=== PATIENT | female | born 1970 | race Caucasian/White ===

== ENCOUNTER → 2016-07-28 | Outpatient (CLI) | payer MEDICARE ==
[2016-07-28 10:26] LABS: CHLORIDE,CL 105 mmol/L (98-110); SODIUM,NA 140 mmol/L (136-146)
== END ==
LOC: MW.CHFP 09:36
PROVIDERS: ATTEND Family Medicine
DX: I10 Essential (primary) hypertension (principal); R73.03 Prediabetes; R73.09 Other abnormal glucose; F41.9 Anxiety disorder, unspecified; G43.409 Hemiplegic migraine, not intractable, without status migrainosus; G47.00 Insomnia, unspecified
CPT/HCPCS: 36415; 80053; 83036; 84443; 85027; 99204

== ENCOUNTER 2016-08-24 17:20 | Emergency (ER) | payer MEDICARE ==
--- NOTE | 2016-08-24 17:33 | EDM.PDOC ---
ED HPI GENERAL MEDICAL PROBLEM - General Stated Complaint: MIGRAINE Time Seen by Provider: 08/24/16 17:20 Source of Information: Reports: Patient History Limitations: Reports: No Limitations - History of Present Illness INITIAL COMMENTS - FREE TEXT/NARRATIVE: HISTORY AND PHYSICAL: History of present illness: [Is brought to the ER by EMS with complaints of a migraine headache and seizures. 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 Her is present at the bedside and corroborates history. She has had a headache for the past 2 days, and has gradually worsened. She began have numerous pseudoseizures this afternoon. Toradol typically causes a flare up of IBD, but she requests this medication today as it is typically effective for CA, and she is allergic to numerous medications. She is following with Dr Edwards and is scheduled for neurology appt w/ Dr. Branch at the end of October. She denies complaints of chest pain shortness of breath and difficulty breathing. Patient and state that today's symptoms are typical for her migraine and pseudoseizure. History of Type 2 diabetes and HTN. ] Review of systems: As per history of present illness and below otherwise all systems reviewed and negative. Past medical history: As per history of present illness and as reviewed below otherwise noncontributory. Surgical history: As per history of present illness and as reviewed below otherwise noncontributory. Social history: No reported history of drug or alcohol abuse. Family history: As per history of present illness and as reviewed below otherwise noncontributory. Physical exam: General: Well-developed well-nourished female. Seizure-like activity is observed upon arrival to the emergency room. During this episode patient's feet and lower legs are flaccid in her upper body is engaged in seizure activity. Patient is coherent through the entire event explaining that this is the a true seizure and is a pseudoseizure. No loss of bowel or bladder control. Exhibits normal postictal symptoms following seizure like activity. HEENT: Atraumatic, normocephalic. PERRLA. Negative for conjunctival pallor or scleral icterus. mucous membranes moist. Neck is supple no lymphadenopathy. Lungs: Clear to auscultation, breath sounds equal bilaterally. Heart: S1S2, regular rate and rhythm. Abdomen: Obese. Soft, nondistended, nontender. Pelvis: Stable nontender. Genitourinary: Deferred. Rectal: Deferred. Extremities: Atraumatic, no cyanosis or edema to feet or lower legs. Neurovascular unremarkable. Neuro: Patient is awake alert and oriented on presentation to the emergency room. Immediately following seizure-like activity she is unresponsive. No response with sternal rub. Patient slowly becomes more alert and conscious. She is oriented to person place and time. Hand channel opener strength is strong and equal bilaterally. Right side of mouth is mildly drooping. This resolves completely within several minutes of the episode. Cranial nerves II through XII unremarkable. Cerebellum unremarkable. Motor and sensory unremarkable throughout. 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 Pt declines CT head stating that she had one recently and has had many CT scans over the past several years. Explained that a head CT would indicate if there were any other complications. Again patient refuses. Her lab results are within normal limits. Her symptoms completely resolve and she is pain-free. She requests to be discharged from the emergency room. Discussed close followup with PCP and to keep appointment with Dr. Branch. She will contact her office to see if she can get in sooner. All patient's questions are answered and concerns are addressed.] Definitive disposition and diagnosis as appropriate pending reevaluation and review of above. headache Pain Score (Numeric/FACES): 10 - Related Data Allergies Allergy/AdvReac Type Severity Reaction Status Date / Time diazepam [From Valium] Allergy Cannot Verified 08/24/16 17:44 Remember fentanyl Allergy Cannot Verified 08/24/16 17:44 Remember hydroxyzine [From Vistaril] Allergy Cannot Verified 08/24/16 17:44 Remember lorazepam [From Ativan] Allergy Cannot Verified 08/24/16 17:44 Remember morphine Allergy Cannot Verified 08/24/16 17:44 Remember ondansetron Allergy Cannot Verified 08/24/16 17:44 [From Zofran (as Remember hydrochloride)] Home Meds: Home Meds Amitriptyline [Elavil] 25 mg PO BEDTIME 08/24/16 [History] DULoxetine [Cymbalta] 60 mg PO DAILY 08/24/16 [History] Estradiol 1 each TD ASDIRECTED 08/24/16 [History] Hydrochlorothiazide 25 mg PO DAILY 08/24/16 [History] Mesalamine [Lialda] 1.2 gm PO BID 08/24/16 [History] Verapamil [Calan SR] 1 tab PO DAILY 08/24/16 [History] lamoTRIgine [Lamotrigine] 1 tab PO QID 08/24/16 [History] metFORMIN [Glucophage XR] 500 mg PO BIDMEALS 08/24/16 [History] ED ROS GENERAL - Review of Systems Review Of Systems: ROS reveals no pertinent complaints other than HPI. - Physical Exam Exam: See Below Course - Vital Signs Last Recorded V/S: Last Vital Signs Temp 97.4 F 08/24/16 19:55 Pulse 84 08/24/16 19:55 Resp 16 08/24/16 19:55 BP 137/94 H 08/24/16 19:55 Pulse Ox 97 08/24/16 19:55 - Orders/Labs/Meds Labs: Laboratory Tests 08/24/16 08/24/16 Range/Units 17:49 17:49 WBC 9.91 (4.0-11.0) K/uL RBC 4.75 (4.30-5.90) M/uL Hgb 13.0 (12.0-16.0) g/dL Hct 40.8 (36.0-46.0) % MCV 85.9 (80.0-98.0) fL MCH 27.4 (27.0-32.0) pg MCHC 31.9 (31.0-37.0) g/dL RDW Std Deviation 44.2 (28.0-62.0) fl RDW Coeff of Dary 14 (11.0-15.0) % Plt Count 327 (150-400) K/uL MPV 9.50 (7.40-12.00) fL Neut % (Auto) 64.5 (48.0-80.0) % Lymph % (Auto) 22.6 (16.0-40.0) % [place] % (Auto) 10.7 (0.0-15.0) % Eos % (Auto) 1.9 (0.0-7.0) % Baso % (Auto) 0.3 (0.0-1.5) % Neut # (Auto) 6.4 H (1.4-5.7) K/uL Lymph # (Auto) 2.2 (0.6-2.4) K/uL [place] # (Auto) 1.1 H (0.0-0.8) K/uL Eos # (Auto) 0.2 (0.0-0.7) K/uL Baso # (Auto) 0.0 (0.0-0.1) K/uL Nucleated RBC % 0.0 /100WBC Nucleated RBCs # 0 K/uL Sodium 141 (136-146) mmol/L Potassium 4.2 (3.5-5.1) mmol/L Chloride 107 (98-110) mmol/L Carbon Dioxide 23 (21-31) mmol/L BUN 15 (6.0-23.0) mg/dL Creatinine 0.9 (0.6-1.5) mg/dL Est Cr Clr Drug Dosing TNP Estimated GFR (MDRD) > 60.0 ml/min Glucose 112 H (60-110) mg/dL Calcium 9.5 (8.8-10.8) mg/dL Magnesium 2.1 (1.5-2.3) mEq/L Total Bilirubin 0.4 (0.1-1.5) mg/dL AST 21 (5-40) IU/L ALT 30 (8-54) IU/L Alkaline Phosphatase 96 (40-150) Total Protein 7.3 (6.0-8.0) g/dL Albumin 4.1 (3.5-5.0) g/dL Globulin 3.2 (2.0-3.5) g/dL Albumin/Globulin Ratio 1.3 (1.3-2.8) TSH 3rd Generation 2.33 (0.47-5.0) uIU/mL Meds: Medications Discontinued Medications Generic Name Dose Route Start Last Admin Trade Name Freq PRN Reason Stop Dose Admin Diphenhydramine HCl 25 mg 08/24/16 17:36 08/24/16 18:45 Benadryl IVPUSH 08/24/16 17:37 25 mg ONETIME ONE Administration Sodium Chloride 1,000 mls @ 999 mls/hr 08/24/16 17:35 05/17/17 18:40 Normal Saline IV 08/24/16 18:35 999 mls/hr STAT ONE Administration Ketorolac Tromethamine 30 mg 08/24/16 17:35 08/24/16 18:41 Toradol IVPUSH 08/24/16 17:36 30 mg ONETIME ONE Administration Promethazine HCl 25 mg 08/24/16 17:36 08/24/16 18:40 Phenergan IM 08/24/16 17:37 25 mg ONETIME ONE Administration Departure - Departure Time of Disposition: 19:30 Disposition: DC/Tfer to Medicaid [facility] Condition: good Clinical Impression: Pseudoseizure Migraine Qualifiers: Migraine type: unspecified - Discharge Information Instructions: Migraine Headache, [id number] Referrals: Ashly Edwards MD [Primary Care Provider] - Forms: ED Department Discharge Additional Instructions: The following information is given to patients seen in the emergency department who are being discharged to home. This information is to outline your options for follow-up care. We provide all patients seen in our emergency department with a follow-up referral. The need for follow-up, as well as the timing and circumstances, are variable depending upon the specifics of your emergency department visit. If you don't have a primary care physician on staff, we will provide you with a referral. We always advise you to contact your personal physician following an emergency department visit to inform them of the circumstance of the visit and for follow-up with them and/or the need for any referrals to a consulting specialist. The emergency department will also refer you to a specialist when appropriate. This referral assures that you have the opportunity for follow-up care with a specialist. All of these measure are taken in an effort to provide you with optimal care, which includes your follow-up. Under all circumstances we always encourage you to contact your private physician who remains a resource for coordinating your care. When calling for follow-up care, please make the office aware that this follow-up is from your recent emergency room visit. If for any reason you are refused follow-up, please contact the [facility] emergency department at and asked to speak to the emergency department charge nurse. [facility] Specialty care- Neurology [address], [address] [place] [address] Followup see primary care provider in 48-72 hours. Phone the clinic listed above to get scheduled with Dr. Branch sooner. Continue home medications as prescribed Return to ER as needed as discussed.
[2016-08-24] MEDS ORDERED: Sodium Chloride 0.9% 1,000 ML IV ONE (17:35)
[2016-08-24] MEDS ORDERED: Ketorolac 30 MG/ML SDV IVPUSH ONE (17:35)
[2016-08-24] MEDS ORDERED: Promethazine 25 MG/ML SDV IM ONE (17:36)
[2016-08-24] MEDS ORDERED: diphenhydrAMINE 50 MG/ML SDV IVPUSH ONE (17:36)
[2016-08-24 18:15] LABS: CHLORIDE,CL 107 mmol/L (98-110); SODIUM,NA 141 mmol/L (136-146)
[2016-08-25 05:11] VITALS: BP 137/94
== END 2016-08-24 19:56 | disposition home or self-care (01) ==
LOC: MW.ED 17:20
DX: F44.5 Conversion disorder with seizures or convulsions (principal); G43.409 Hemiplegic migraine, not intractable, without status migrainosus; Z79.899 Other long term (current) drug therapy; Z79.84 Long term (current) use of oral hypoglycemic drugs; Z88.8 Allergy status to other drugs, medicaments and biological substances
CPT/HCPCS: 36415; 80053; 83735; 84443; 85025; 96361; 96372; 96374; 96375; 99284; J1200; J1885; J2550; J7040

== ENCOUNTER 2017-07-22 04:57 | Observation (INO) | payer MEDICARE ==
[2017-07-22] MEDS ORDERED: Nitroglycerin 2% Oint 1 GM UD Packet TOP ONE (05:12)
[2017-07-22] MEDS ORDERED: Aspirin 81 MG Tab.Chew PO ONE (05:12)
[2017-07-22] MEDS ORDERED: Ketorolac 30 MG/ML SDV IVPUSH ONE (05:14)
[2017-07-22] MEDS ORDERED: Sodium Chloride 0.9% 1,000 ML IV SCH ×2 (05:15→07:30)
[2017-07-22] MEDS ORDERED: Promethazine 25 MG/ML SDV IM ONE ×2 (05:45→07:24)
[2017-07-22 06:03] LABS: CHLORIDE,CL 106 mmol/L (98-107); SODIUM,NA 144 mmol/L (136-145)
--- NOTE | 2017-07-22 06:21 | EDM.PDOC ---
ED HPI GENERAL MEDICAL PROBLEM - General Chief Complaint: Chest Pain Stated Complaint: CHEST PAINS Time Seen by Provider: 07/22/17 06:10 - History of Present Illness INITIAL COMMENTS - FREE TEXT/NARRATIVE: HISTORY AND PHYSICAL: History of present illness: Patient's 47-year-old female presents with concern of chest pain she states this is been intermittent with associated shortness of breath she was recently diagnosed with hypercholesterolemia she has a history of some movement disorder and review prior medical records looks like possible pseudoseizures. She's under a lot of stress recently due to illness of her father. In the emergency department patient was having these focal movement that are known to patient and . Review of systems: As per history of present illness and below otherwise all systems reviewed and negative. Past medical history: As per history of present illness and as reviewed below otherwise noncontributory. Surgical history: As per history of present illness and as reviewed below otherwise noncontributory. Social history: No reported history of drug or alcohol abuse. Family history: As per history of present illness and as reviewed below otherwise noncontributory. Physical exam: HEENT: Atraumatic, normocephalic, pupils reactive, negative for conjunctival pallor or scleral icterus, mucous membranes moist, throat clear, neck supple, nontender, trachea midline. Lungs: Clear to auscultation, breath sounds equal bilaterally, chest nontender. Heart: S1S2, regular, negative for clicks, rubs, or JVD. Abdomen: Soft, nondistended, nontender. Negative for masses or hepatosplenomegaly. Negative for costovertebral tenderness. Pelvis: Stable nontender. Genitourinary: Deferred. Rectal: Deferred. Extremities: Atraumatic, negative for cords or calf pain. Neurovascular unremarkable. Neuro: Awake, alert, oriented. Cranial nerves II through XII unremarkable. Cerebellum unremarkable. Motor and sensory unremarkable throughout. Exam nonfocal. Diagnostics: CBC CMP troponin PT/INR chest x-ray EKG CT brain Therapeutics: IV O2 monitor Nitropaste 1 inch Impression: 1 chest pain Definitive disposition and diagnosis as appropriate pending reevaluation and review of above. chest pain Pain Score (Numeric/FACES): 4 - Related Data Allergies Allergy/AdvReac Type Severity Reaction Status Date / Time diazepam [From Valium] Allergy Shortness Verified 07/22/17 05:06 of Breath fentanyl Allergy Shortness Verified 07/22/17 05:06 of Breath hydroxyzine [From Vistaril] Allergy Respiratory Verified 07/22/17 05:06 Distress lorazepam [From Ativan] Allergy Shortness Verified 07/22/17 05:06 of Breath morphine Allergy Itching Verified 07/22/17 05:06 ondansetron Allergy Cannot Verified 07/22/17 05:06 [From Zofran (as Remember hydrochloride)] Home Meds: Home Meds Amitriptyline [Elavil] 25 mg PO BEDTIME 08/24/16 [History] Estradiol 1 each TD ASDIRECTED 08/24/16 [History] Hydrochlorothiazide 25 mg PO DAILY 08/24/16 [History] Mesalamine [Lialda] 1.2 gm PO BID 08/24/16 [History] Verapamil [Calan SR] 1 tab PO DAILY 08/24/16 [History] lamoTRIgine [Lamotrigine] 1 tab PO QID 08/24/16 [History] metFORMIN [Glucophage XR] 500 mg PO BIDMEALS 08/24/16 [History] Ketorolac Tromethamine 1 tab PO DAILY 07/22/17 [History] Magnesium Sulfate/D5W [Magnesium 1 GM in D5W 100 ML] 1 gm IV ASDIRECTED [History] Promethazine [Phenergan] 25 mg PO ASDIRECTED 07/22/17 [History] SUMAtriptan [Imitrex] 2.5 mg SQ ASDIRECTED 07/22/17 [History] diphenhydrAMINE [Benadryl] 25 mg PO ASDIRECTED 07/22/17 [History] Past Medical History HEENT History: Reports: None Cardiovascular History: Reports: Hypertension Respiratory History: Reports: None Gastrointestinal History: Reports: None Genitourinary History: Reports: None [employer] History: Reports: Musculoskeletal History: Reports: None Neurological History: Reports: Migraines, Other (See Below) Other Neuro History: 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 Psychiatric History: Reports: Anxiety, Depression Endocrine/Metabolic History: Reports: Other (See Below) Other Endocrine/Metabolic History: pre-DM Hematologic History: Reports: None Immunologic History: Reports: None Oncologic (Cancer) History: Reports: None Dermatologic History: Reports: None - Infectious Disease History Infectious Disease History: Reports: None - Past Surgical History Head Surgeries/Procedures: Reports: None GI Surgical History: Reports: Appendectomy, Cholecystectomy Female Surgical History: Reports: Hysterectomy Neurological Surgical History: Reports: None Social & Family History - Family History Family Medical History: Noncontributory - Tobacco Use Smoking Status *Q: Never Smoker - Caffeine Use Caffeine Use: Reports: Coffee - Recreational Drug Use Recreational Drug Use: No ED ROS GENERAL - Review of Systems Review Of Systems: ROS reveals no pertinent complaints other than HPI. ED EXAM, GENERAL - Physical Exam Exam: See Below (See dictation) Course - Vital Signs Last Recorded V/S: Last Vital Signs Temp 36.2 C 07/22/17 05:12 Pulse 87 07/22/17 05:54 Resp 18 07/22/17 05:54 BP 150/107 H 07/22/17 05:54 Pulse Ox 99 07/22/17 05:54 - Orders/Labs/Meds Orders: Active Orders 24 hr Category Date Time Status EKG Documentation Completion [RC] STAT Care 07/22/17 05:11 Active Chest 1V Frontal [CR] Stat Exams 07/22/17 05:11 Taken Head wo Cont [CT] Stat Exams 07/22/17 05:11 Taken Sodium Chloride 0.9% [Normal Saline] 1,000 ml Med 07/22/17 05:15 Active IV ASDIRECTED Medication Orders Sodium Chloride (Normal Saline) 1,000 mls @ 999 mls/hr IV ASDIRECTED STEPHANIE Last Admin: 07/22/17 05:22 Dose: 999 mls/hr Labs: Laboratory Tests 07/22/17 07/22/17 Range/Units 05:08 05:08 WBC 12.16 H (4.0-11.0) K/uL RBC 5.12 (4.30-5.90) M/uL Hgb 14.4 (12.0-16.0) g/dL Hct 44.0 (36.0-46.0) % MCV 85.9 (80.0-98.0) fL MCH 28.1 (27.0-32.0) pg MCHC 32.7 (31.0-37.0) g/dL RDW Std Deviation 43.3 (28.0-62.0) fl RDW Coeff of Dary 14 (11.0-15.0) % Plt Count 357 (150-400) K/uL MPV 9.70 (7.40-12.00) fL Neut % (Auto) 52.6 (48.0-80.0) % Lymph % (Auto) 32.7 (16.0-40.0) % [place] % (Auto) 12.8 (0.0-15.0) % Eos % (Auto) 1.4 (0.0-7.0) % Baso % (Auto) 0.5 (0.0-1.5) % Neut # (Auto) 6.4 H (1.4-5.7) K/uL Lymph # (Auto) 4.0 H (0.6-2.4) K/uL [place] # (Auto) 1.6 H (0.0-0.8) K/uL Eos # (Auto) 0.2 (0.0-0.7) K/uL Baso # (Auto) 0.1 (0.0-0.1) K/uL Nucleated RBC % 0.0 /100WBC Nucleated RBCs # 0 K/uL Sodium 144 (136-145) mmol/L Potassium 4.4 (3.5-5.1) mmol/L Chloride 106 (98-107) mmol/L Carbon Dioxide 22.8 (21.0-32.0) mmol/L BUN 24 H (7.0-18.0) mg/dL Creatinine 0.7 (0.6-1.0) mg/dL Est Cr Clr Drug Dosing 95.58 mL/min Estimated GFR (MDRD) > 60.0 ml/min Glucose 141 H (74-106) mg/dL Calcium 8.9 (8.5-10.1) mg/dL Total Bilirubin 0.3 (0.2-1.0) mg/dL AST 22 (15-37) IU/L ALT 38 (14-63) IU/L Alkaline Phosphatase 120 H (46-116) U/L CK-MB (CK-2) 0.4 (0-3.6) ng/mL Troponin I < 0.050 (0.000-0.056) ng/mL Total Protein 7.2 (6.4-8.2) g/dL Albumin 3.7 (3.4-5.0) g/dL Globulin 3.5 (2.0-3.5) g/dL Albumin/Globulin Ratio 1.1 L (1.3-2.8) Meds: Medications Generic Name Dose Route Start Last Admin Trade Name Fallon PRN Reason Stop Dose Admin Sodium Chloride 1,000 mls @ 999 mls/hr 07/22/17 05:15 07/22/17 05:22 Normal Saline IV 999 mls/hr ASDIRECTED STEPHANIE Administration Discontinued Medications Generic Name Dose Route Start Last Admin Trade Name Fallon PRN Reason Stop Dose Admin Aspirin 324 mg 07/22/17 05:12 07/22/17 06:01 Aspirin PO 07/22/17 05:13 324 mg ONETIME ONE Administration Ketorolac Tromethamine 30 mg 07/22/17 05:14 07/22/17 05:21 Toradol IVPUSH 07/22/17 05:15 30 mg ONETIME ONE Administration Nitroglycerin 1 gm 07/22/17 05:12 07/22/17 05:52 Nitro-Bid 2% TOP 07/22/17 05:13 1 gm ONETIME ONE Administration Promethazine HCl 12.5 mg 07/22/17 05:45 07/22/17 05:50 Phenergan IM 07/22/17 05:46 12.5 mg ONETIME ONE Administration Departure - Departure Time of Disposition: 06:20 Disposition: Refer to Observation Condition: Good Clinical Impression: Chest pain - Discharge Information Referrals: PCP,None [Primary Care Provider] - - My Orders Last 24 Hours: My Active Orders 07/22/17 05:11 EKG Documentation Completion [RC] STAT Chest 1V Frontal [CR] Stat Head wo Cont [CT] Stat 07/22/17 05:15 Sodium Chloride 0.9% [Normal Saline] 1,000 ml IV ASDIRECTED - Assessment/Plan Last 24 Hours: My Active Orders 07/22/17 05:11 EKG Documentation Completion [RC] STAT Chest 1V Frontal [CR] Stat Head wo Cont [CT] Stat 07/22/17 05:15 Sodium Chloride 0.9% [Normal Saline] 1,000 ml IV ASDIRECTED
[2017-07-22] MEDS ORDERED: Metoclopramide 10 MG/2 ML SDV IVPUSH PRN (11:18)
--- NOTE | 2017-07-22 13:03 | PCM.HP ---
H&P History of Present Illness - General Admit Problem/Dx: Admission Diagnosis/Problem Admission Diagnosis/Problem Chest pain - History of Present Illness Initial Comments - Free Text/Narative: 47 yo female with pmh of hemiplegic migraines with seizure like activity who presents to the ED with complaints of chest pain. The chest pain occurred at 4 am and she describes it as a Damon horse. When she was seen in the ED EKG reported normal sinus with no signs of ischemia. Initial troponin was negative. She did have migraine symptoms in the ED and was treated with toradol and reglan. Her chest pain resolved and she was transferred to the floor with telemetry. She reports alot of stress due to sick family members and wonders if this could be causing her chest pain. chest pain Pain Score (Numeric/FACES): 0 - Related Data Allergies/Adverse Reactions: Allergies Allergy/AdvReac Type Severity Reaction Status Date / Time diazepam [From Valium] Allergy Shortness Verified 07/22/17 05:06 of Breath fentanyl Allergy Shortness Verified 07/22/17 05:06 of Breath hydroxyzine [From Vistaril] Allergy Respiratory Verified 07/22/17 05:06 Distress lorazepam [From Ativan] Allergy Shortness Verified 07/22/17 05:06 of Breath morphine Allergy Itching Verified 07/22/17 05:06 ondansetron Allergy Cannot Verified 07/22/17 05:06 [From Zofran (as Remember hydrochloride)] Home Medications: Home Meds Amitriptyline [Elavil] 25 mg PO BEDTIME 08/24/16 [History] Hydrochlorothiazide 25 mg PO DAILY 08/24/16 [History] Mesalamine [Lialda] 2.4 gm PO PCLUNCH 08/24/16 [History] Verapamil [Calan SR] 1 tab PO DAILY 08/24/16 [History] metFORMIN [Glucophage XR] 1,000 mg PO PCDINNER 08/24/16 [History] Ketorolac Tromethamine 1 tab PO DAILY PRN 07/22/17 [History] Magnesium Sulfate/D5W [Magnesium 1 GM in D5W 100 ML] 1 gm IV ASDIRECTED [History] Promethazine [Phenergan] 25 mg PO ASDIRECTED PRN 07/22/17 [History] SUMAtriptan [Imitrex] 2.5 mg PO ASDIRECTED PRN 07/22/17 [History] diphenhydrAMINE [Benadryl] 25 mg PO ASDIRECTED PRN 07/22/17 [History] Past Medical History HEENT History: Reports: None Cardiovascular History: Reports: Hypertension Respiratory History: Reports: None Gastrointestinal History: Reports: None Genitourinary History: Reports: None 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: Musculoskeletal History: Reports: None Neurological History: Reports: Migraines, Other (See Below) Other Neuro History: 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 Psychiatric History: Reports: Anxiety, Depression Endocrine/Metabolic History: Reports: Diabetes, Type II, Other (See Below) Other Endocrine/Metabolic History: pre-DM Hematologic History: Reports: None Immunologic History: Reports: None Oncologic (Cancer) History: Reports: None Dermatologic History: Reports: None - Infectious Disease History Infectious Disease History: Reports: None - Past Surgical History Head Surgeries/Procedures: Reports: None HEENT Surgical History: Reports: None GI Surgical History: Reports: Appendectomy, Cholecystectomy Female Surgical History: Reports: Hysterectomy Neurological Surgical History: Reports: None Social & Family History - Family History Family Medical History: Noncontributory Respiratory: Reports: None - Tobacco Use Smoking Status *Q: Never Smoker - Caffeine Use Caffeine Use: Reports: Coffee - Recreational Drug Use Recreational Drug Use: No H&P Review of Systems - Review of Systems: Review Of Systems: ROS reveals no pertinent complaints other than HPI. Exam - Exam Exam: See Below - Vital Signs Vital Signs: Last Vital Signs Temp 36.6 C 07/22/17 06:44 Pulse 77 07/22/17 06:56 Resp 17 07/22/17 06:56 BP 130/85 07/22/17 06:56 Pulse Ox 99 07/22/17 06:56 Weight: 124.8 kg - Exam General: Alert, Oriented HEENT: Mucosa Moist & [place] Neck: Supple. No: JVD Lungs: Clear to Auscultation, Normal Respiratory Effort Cardiovascular: Regular Rate, Regular Rhythm, Normal S1, Normal S2. No: Systolic Murmur, Diastolic Murmur GI/Abdominal Exam: Normal Bowel Sounds, Soft, Non-Tender Extremities: Non-Tender, No Pedal Edema Skin: Warm, Dry, Intact Neurological: No: Focal Deficit Neuro Extensive - Mental Status: Normal Cognition - Patient Data Lab Results Last 24 hrs: Laboratory Results - last 24 hr 07/22/17 07/22/17 07/22/17 Range/Units 05:08 05:08 11:31 WBC 12.16 H (4.0-11.0) K/uL RBC 5.12 (4.30-5.90) M/uL Hgb 14.4 (12.0-16.0) g/dL Hct 44.0 (36.0-46.0) % MCV 85.9 (80.0-98.0) fL MCH 28.1 (27.0-32.0) pg MCHC 32.7 (31.0-37.0) g/dL RDW Std Deviation 43.3 (28.0-62.0) fl RDW Coeff of Dary 14 (11.0-15.0) % Plt Count 357 (150-400) K/uL MPV 9.70 (7.40-12.00) fL Neut % (Auto) 52.6 (48.0-80.0) % Lymph % (Auto) 32.7 (16.0-40.0) % [place]ulloch % (Auto) 12.8 (0.0-15.0) % Eos % (Auto) 1.4 (0.0-7.0) % Baso % (Auto) 0.5 (0.0-1.5) % Neut # (Auto) 6.4 H (1.4-5.7) K/uL Lymph # (Auto) 4.0 H (0.6-2.4) K/uL [place]och # (Auto) 1.6 H (0.0-0.8) K/uL Eos # (Auto) 0.2 (0.0-0.7) K/uL Baso # (Auto) 0.1 (0.0-0.1) K/uL Nucleated RBC % 0.0 /100WBC Nucleated RBCs # 0 K/uL Sodium 144 (136-145) mmol/L Potassium 4.4 (3.5-5.1) mmol/L Chloride 106 (98-107) mmol/L Carbon Dioxide 22.8 (21.0-32.0) mmol/L BUN 24 H (7.0-18.0) mg/dL Creatinine 0.7 (0.6-1.0) mg/dL Est Cr Clr Drug Dosing 95.58 mL/min Estimated GFR (MDRD) > 60.0 ml/min Glucose 141 H (74-106) mg/dL Calcium 8.9 (8.5-10.1) mg/dL Total Bilirubin 0.3 (0.2-1.0) mg/dL AST 22 (15-37) IU/L ALT 38 (14-63) IU/L Alkaline Phosphatase 120 H (46-116) U/L CK-MB (CK-2) 0.4 (0-3.6) ng/mL Troponin I < 0.050 < 0.050 (0.000-0.056) ng/mL Total Protein 7.2 (6.4-8.2) g/dL Albumin 3.7 (3.4-5.0) g/dL Globulin 3.5 (2.0-3.5) g/dL Albumin/Globulin Ratio 1.1 L (1.3-2.8) Result Diagrams: 07/22/17 05:08 07/22/17 05:08 Problem List Initiated/Reviewed/Updated: Yes Orders Last 24hrs: Active Orders 24 hr Category Date Time Status Patient Status [ADT] Stat ADT 07/22/17 06:21 Active Telemetry Monitoring [Cardiac Monitoring] [RC] . Care 07/22/17 06:27 Active DIRECTED Regular Diet [DIET] Diet 07/22/17 Lunch Active Chest 1V Frontal [CR] Stat Exams 07/22/17 05:11 Taken Head wo Cont [CT] Stat Exams 07/22/17 05:11 Taken TROPONIN I [CHEM] Q6H Lab 07/22/17 17:22 Ordered Metoclopramide [Reglan] Med 07/22/17 11:18 Active 5 mg IVPUSH Q4H PRN Sodium Chloride 0.9% [Normal Saline] 1,000 ml Med 07/22/17 07:30 Stop Req IV STAT Medication Orders Sodium Chloride (Normal Saline) 1,000 mls @ 125 mls/hr IV STAT STEPHANIE Last Admin: 07/22/17 07:27 Dose: 125 mls/hr Metoclopramide HCl (Reglan) 5 mg IVPUSH Q4H PRN PRN Reason: Nausea Last Admin: 07/22/17 11:25 Dose: 5 mg Assessment/Plan Comment:: 47 yo female who is being observed for chest pain. She ruled out for acute coronary syndrome with serial negative cardiac enzymes. She was discharged home with referral to outpatient cardiac stress testing.
[2017-07-22] MEDS ORDERED: Verapamil 240 MG Tab.ER PO SCH (13:15)
[2017-07-22] MEDS ORDERED: Hydrochlorothiazide 25 MG Tab PO SCH (13:15)
[2017-07-22] MEDS ORDERED: metFORMIN 500 MG Tab.ER PO SCH (18:00)
[2017-07-22] MEDS ORDERED: Amitriptyline 25 MG Tab PO SCH (21:00)
--- NOTE | 2017-07-24 09:43 | CR ---
EXAM DATE: 07/22/17 PATIENT'S AGE: 47 Patient: PATRICK JANG Facility: [place], [place] Site . Site : 1970 Study: XRay Chest [id number]/14/2018 5:46:07 AM Ordering Physician: Doctor Garcia Final Report: INDICATION: MIGRAINS WITH INTERMITTANT UNRESPONSIVEMESS TECHNIQUE: Chest 1 view COMPARISON: None FINDINGS: Cardiovascular and mediastinum: Heart size and vasculature are normal in caliber and appearance. Mediastinum is within normal limits. Lungs and pleural space: No focal consolidation. No sign of pleural effusion. No pneumothorax. Bones and soft tissues: No significant findings. IMPRESSION: No acute cardiopulmonary disease. Dictated by William Estes MD @ 07/22/2017 6:32:49 AM Dictated by: William Estes MD @ 07/22/2017 06:32:55 (Electronic Signature) Report Signed by Proxy. MTDBrianda
--- NOTE | 2017-07-24 09:44 | CT ---
EXAM DATE: 07/22/17 PATIENT'S AGE: 47 Patient: PATRICK JANG Facility: [place], [place] Site . Site : 1970 Study: CT Head [id number]/14/2018 5:47:04 AM Ordering Physician: Doctor Garcia Final Report: INDICATION: HX MIGRAINES W/INTERMITTENT UNRESPONSIVENESS TECHNIQUE: CT Head without contrast. COMPARISON: None. FINDINGS: There is no sign of intracranial hemorrhage or mass effect. The booth-white differentiation is preserved. No abnormal intra-axial or extra-axial fluid collection. Retention cyst versus polyp in the imaged right maxillary sinus. No acute disease of the visualized paranasal sinuses and mastoid air cells. No fracture evident. No scalp hematoma/laceration. IMPRESSION: No acute intracranial process. Please note that all CT scans at this facility use dose modulation, iterative reconstruction, and/or weight-based dosing when appropriate to reduce radiation dose to as low as reasonably achievable. Dictated by: William Estes MD @ 07/22/2017 06:35:52 (Electronic Signature) Report Signed by Proxy. [facility]
== END 2017-07-22 18:30 | disposition home or self-care (01) ==
LOC: MW.ED 04:57 → MW.MS 06:21
PROVIDERS: ADMIT Internal Medicine; ATTEND Internal Medicine
DX: R07.9 Chest pain, unspecified (principal); G43.409 Hemiplegic migraine, not intractable, without status migrainosus; I10 Essential (primary) hypertension; F41.9 Anxiety disorder, unspecified; F32.9 Major depressive disorder, single episode, unspecified; E11.9 Type 2 diabetes mellitus without complications; Z90.49 Acquired absence of other specified parts of digestive tract; Z88.8 Allergy status to other drugs, medicaments and biological substances; Z88.5 Allergy status to narcotic agent; Z79.84 Long term (current) use of oral hypoglycemic drugs; Z79.899 Other long term (current) drug therapy
CPT/HCPCS: 70450; 71045; 80053; 82553; 84484; 85025; 93005; 96361; 96372; 96374; 99285; A9270; J1885; J2550; J2765; J7040; 96375; 99283; G0378